=== PATIENT | male | born 1995 | race Caucasian/White ===

== ENCOUNTER 2024-10-03 16:56 | Emergency (ER) | payer OTHER ==
[~2024-10-03] VITALS: Ht 177.8 cm; Wt 113.4 kg
[2024-10-03] MEDS ORDERED: THIAMINE HCL 100 MG TABLET ONE (19:15)
[2024-10-03] MEDS ORDERED: FOLIC ACID 1 MG TABLET ONE (19:15)
[2024-10-03] MEDS: FOLIC ACID 1 MG TABLET PO ONE (19:18)
[2024-10-03] MEDS: THIAMINE HCL 100 MG TABLET PO ONE (19:18)
[2024-10-03 19:25] LABS: PLATELET COUNT (AUTO) 313 K/uL (150-450); RED BLOOD CELL COUNT(AUTO) 5.39 MIL/uL (4.5-6.0); RED CELL DISTRIBUTION WIDTH 17.8 % (11.5-15.0); WHITE BLOOD COUNT (AUTO) 5.2 K/uL (4.3-11.0)
[2024-10-03 19:35] LABS: CALCIUM, SERUM 8.2 mg/dL (8.5-10.1); CREATININE 0.8 mg/dL (0.6-1.3); SODIUM SERUM 147.0 mmol/L (136-145); UREA NITROGEN, BLOOD 7.0 mg/dL (7-18)
[2024-10-03 19:42] LABS: ALCOHOL, BLOOD 447.0 mg/dL (0-10); ASPARTATE AMINOTRANSFERASE 18.0 U/L (15-37); TOTAL PROTEIN, SERUM 7.6 g/dL (6.4-8.2)
[2024-10-03 20:57] VITALS: BP 128/80; TEMP 98; O2SAT 95
== END 2024-10-03 20:58 | disposition home or self-care (01) ==
LOC: ER 17:00
DX: F10.129 Alcohol abuse with intoxication, unspecified (principal); Y90.8 Blood alcohol level of 240 mg/100 ml or more
CPT/HCPCS: 36415; 80048-TC; 80076-TC; 85025-TC; 98960; G0480